=== PATIENT | male | born 1960 | race Two or more races ===

== ENCOUNTER → 2024-11-22 | Outpatient (CLI) | payer MEDICAID, SELFPAY ==
[2024-11-22 18:00] LABS: Prostate Specific Antigen 0.34 ng/mL (0-4.00)
[2024-11-29 06:46] LABS: Testosterone, Total, Dialysis 223 ng/dL (250-1100)
== END | disposition home or self-care (01) ==
LOC: COPL 14:33
PROVIDERS: PCP Family Medicine; Referring Provider Surgery; Visit Provider Surgery
DX: N52.9 Male erectile dysfunction, unspecified (principal); N40.1 Benign prostatic hyperplasia with lower urinary tract symptoms
CPT/HCPCS: 36415; 84153; 84402; 84403

== ENCOUNTER 2025-05-12 17:52 | Emergency (ER) | payer MEDICAID, SELFPAY ==
[2025-05-12 19:35] VITALS: BMI 33.1
[2025-05-12 19:36] VITALS: BP 149/79; PULSE 98; RESP 17; TEMP 36.9; O2SAT 95
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
[2025-05-12] MEDS: HYDROcodone/APAP 10/325 TAB PO (20:27)
[2025-05-12] MEDS: KETOROLAC INJ 60 MG/2 ML VIAL 30 MG IM (22:43)
[2025-05-12 22:57] VITALS: RESP 16
== END 2025-05-12 22:57 | disposition home or self-care (01) ==
PROVIDERS: Emergency Provider Emergency Medicine; PCP Family Medicine
DX: S20.219A Contusion of unspecified front wall of thorax, initial encounter (principal); V89.9XXA Person injured in unspecified vehicle accident, initial encounter
CPT/HCPCS: 71250; 96372; 99284; J1885; A9270